=== PATIENT | female | born 1995 | race Two or more races ===

== ENCOUNTER 2018-01-01 01:14 | Emergency (ER) | payer OTHER ==
[~2018-01-01] VITALS: Ht 162.6 cm; Wt 68.0 kg
--- NOTE | 2018-01-01 01:45 | NUR ---
PT A/OX4 BREATHING EFFORTLESSLY ON ROOM AIR, PT STATES SHE HAS BEEN HVAING LEFT FLANK PAIN X 3 DAYS AND IT IS ONLY GETTING WORSE, PT STATES PAIN GOES FROM LEFT LOWER BACK TO LEFT FLANK TO LLQ ABD, PT ON MONITOR, URINE COLLECTED AND SENT TO LAB, IV PLACED, LABS DRAWN, PT FRIEND AT BEDSIDE, WARM BLANKET GIVEN TO PT, MD MADE AWARE WILL CONTINUE TO MONTIOR.
[2018-01-01 01:51] LABS: APPEARANCE,URINE CLEAR (CLEAR); BILIRUBIN,URINE NEGATIVE (NEGATIVE); BLOOD, URINE 3+ Ery/uL (NEGATIVE); COLOR,URINE YELLOW (YELLOW); KETONES,URINE NEGATIVE (NEGATIVE); LEUKOCYTE ESTERASE ,URINE NEGATIVE (NEGATIVE); NITRITE, URINE NEGATIVE (NEGATIVE); PROTEIN,URINE NEGATIVE (NEGATIVE); UGLUCOSE NEGATIVE (NEGATIVE); UROBILINOGEN,URINE 0.2 EU/dL (0.2)
[2018-01-01 01:55] LABS: BACTERIA,URINE Moderate /HPF (None Seen); SQUAMOUS EPITHELIAL CELL,UR Few /HPF (None Seen)
[2018-01-01] MEDS ORDERED: LORAZEPAM INJ 2 MG/ML VIAL IV ONE (02:00)
[2018-01-01] MEDS ORDERED: KETOROLAC TROMETHAMINE INJ 30 MG/ML VIAL IV ONE (02:00)
[2018-01-01] MEDS ORDERED: ONDANSETRON HCL/PF 4 MG/2 ML VIAL IVP ONE (02:00)
[2018-01-01] MEDS ORDERED: IV NS 0.9% 1,000 ML BAG IV ONE (02:00)
[2018-01-01 02:03] LABS: BASOPHILS % (AUTO) 0.6 % (0.0-2.0); EOSINOPHILS # (AUTO) 0.1 /CMM (0.0-0.7); EOSINOPHILS % (AUTO) 1.5 % (0.0-6.0); HEMATOCRIT 39 % (33-45); HEMOGLOBIN 13.5 g/dL (11.5-14.8); LYMPHOCYTES % (AUTO) 33.8 % (20.0-44.0); MEAN CORPUSCULAR HEMOGLOBIN 31 PG (26.0-33.0); MEAN CORPUSCULAR HGB CONC 34 g/dl (31.0-36.0); MEAN CORPUSCULAR VOLUME 89 fL (82-100); MONOCYTES # (AUTO) 0.4 /CMM (0.1-1.30); MONOCYTES % (AUTO) 7.3 % (2.0-12.0); NEUTROPHILS # (AUTO) 3.4 /CMM (1.8-8.9); NEUTROPHILS % (AUTO) 56.8 % (43.0-81.0); PLATELET COUNT (AUTO) 242 /CMM (150-450); RDW COEFFICIENT OF VARIATION 12.4 (11.5-15.0); RED BLOOD CELL COUNT(AUTO) 4.41 MIL/uL (4.0-5.2)
[2018-01-01] MEDS ORDERED: KETOROLAC TROMETHAMINE 15 MG/ML VIAL ONE (02:03)
[2018-01-01] MEDS ORDERED: ONDANSETRON HCL/PF 4 MG/2 ML VIAL ONE (02:03)
[2018-01-01] MEDS ORDERED: LORAZEPAM INJ 2 MG/ML VIAL ONE (02:04)
[2018-01-01 02:12] LABS: CALCIUM, SERUM 9.1 mg/dL (8.5-10.1); CREATININE 0.8 mg/dL (0.6-1.3); POTASSIUM 3.5 mmol/L (3.5-5.1)
[2018-01-01 02:18] LABS: ALBUMIN 4.1 g/dL (3.4-5.0); BILIRUBIN,DIRECT 0.1 mg/dL (0.0-0.2); BILIRUBIN,TOTAL 0.2 mg/dL (0.2-1.0); TOTAL PROTEIN, SERUM 7.8 g/dL (6.4-8.2)
--- NOTE | 2018-01-01 02:35 | NUR ---
PT TO CT
[2018-01-01] MEDS ORDERED: TAMSULOSIN 0.4 MG CAP.SR.24H ONE (03:26)
[2018-01-01] MEDS ORDERED: HYDROMORPHONE INJ 0.5 MG/0.5 ML SYRINGE ONE (03:26)
[2018-01-01] MEDS ORDERED: HYDROMORPHONE INJ 0.5 MG/0.5 ML SYRINGE IV ONE (03:30)
[2018-01-01] MEDS ORDERED: TAMSULOSIN 0.4 MG CAP.SR.24H PO ONE (03:30)
[2018-01-01 04:45] VITALS: BP 118/62
== END 2018-01-01 04:46 | disposition home or self-care (01) ==
LOC: ER 01:18
DX: N13.2 Hydronephrosis with renal and ureteral calculous obstruction (principal); F41.1 Generalized anxiety disorder; J45.909 Unspecified asthma, uncomplicated; F10.10 Alcohol abuse, uncomplicated; N39.0 Urinary tract infection, site not specified
CPT/HCPCS: 36415; 74176; 80048; 80076; 81001; 83690; 84703; 85025; 87086; 96361; 96374; 96375; 99285; A4606; J1885; J2060; J2405; Z7610; 81000-TC

== ENCOUNTER → 2018-02-17 | Emergency (ER) | payer OTHER ==
[~2018-02-17] VITALS: Ht 162.6 cm; Wt 70.3 kg
[~2018-02-17] MED LIST: IV NS 0.9% 1,000 ML BAG IV ONE; KETOROLAC TROMETHAMINE 15 MG/ML VIAL ONE; KETOROLAC TROMETHAMINE INJ 30 MG/ML VIAL IV ONE
[2018-02-17 14:26] LABS: APPEARANCE,URINE Cloudy (CLEAR); BILIRUBIN,URINE Negative (NEGATIVE); BLOOD, URINE Large Ery/uL (NEGATIVE); COLOR,URINE Yellow (YELLOW); KETONES,URINE Negative (NEGATIVE); LEUKOCYTE ESTERASE ,URINE Negative (NEGATIVE); NITRITE, URINE Negative (NEGATIVE); PROTEIN,URINE Trace mg/dl (NEGATIVE); UGLUCOSE Negative (NEGATIVE); UROBILINOGEN,URINE 0.2 EU/dL (0.2)
[2018-02-17 14:35] LABS: BACTERIA,URINE None seen /HPF (None Seen); RBC,URINE 51-80 /HPF (0-2); WBC,URINE 0-3 /HPF (0-3)
[2018-02-17 14:36] LABS: CALCIUM OXALATE CRYSTALS,UR Few /HPF (None Seen); SQUAMOUS EPITHELIAL CELL,UR Moderate /HPF (None Seen)
--- NOTE | 2018-02-17 14:40 | NUR ---
IV STARTED BY HEMAL TUTTLE. BLOOD SAMPLES OBTAINED AND GIVEN TO VIC VISITOR SERVICES TECHNICIAN.
[2018-02-17 14:45] LABS: BASOPHILS % (AUTO) 0.2 % (0.0-2.0); EOSINOPHILS # (AUTO) 0.1 /CMM (0.0-0.7); EOSINOPHILS % (AUTO) 2.7 % (0.0-6.0); HEMATOCRIT 40 % (33-45); HEMOGLOBIN 13.7 g/dL (11.5-14.8); LYMPHOCYTES # (AUTO) 1.2 /CMM (0.8-4.8); LYMPHOCYTES % (AUTO) 30.2 % (20.0-44.0); MEAN CORPUSCULAR HEMOGLOBIN 30 PG (26.0-33.0); MEAN CORPUSCULAR HGB CONC 34 g/dl (31.0-36.0); MEAN CORPUSCULAR VOLUME 89 fL (82-100); MONOCYTES # (AUTO) 0.3 /CMM (0.1-1.30); MONOCYTES % (AUTO) 6.1 % (2.0-12.0); NEUTROPHILS # (AUTO) 2.5 /CMM (1.8-8.9); NEUTROPHILS % (AUTO) 60.8 % (43.0-81.0); PLATELET COUNT (AUTO) 226 /CMM (150-450); RDW COEFFICIENT OF VARIATION 12.3 (11.5-15.0); RED BLOOD CELL COUNT(AUTO) 4.56 MIL/uL (4.0-5.2); WHITE BLOOD COUNT (AUTO) 4.1 K/uL (4.3-11.0)
[2018-02-17 14:56] LABS: CALCIUM, SERUM 8.3 mg/dL (8.5-10.1); CREATININE 0.8 mg/dL (0.6-1.3); POTASSIUM 3.8 mmol/L (3.5-5.1)
[2018-02-17 14:59] LABS: BILIRUBIN,DIRECT 0.1 mg/dL (0.0-0.2); BILIRUBIN,TOTAL 0.4 mg/dL (0.2-1.0); TOTAL PROTEIN, SERUM 7.9 g/dL (6.4-8.2)
--- NOTE | 2018-02-17 15:14 | NUR ---
PT C/O CONSTANT ABD PAIN RADIATING TO THE LEFT FLANK 06/10 WITH INTERMITTENT PAIN OF 09/10. DR. QUIROZ WAS NOTIFIED.
--- NOTE | 2018-02-17 15:19 | NUR ---
DR. QUIROZ IS SPEAKING TO THE PT.
[2018-02-17 15:37] VITALS: BP 106/63
--- NOTE | 2018-02-17 15:39 | NUR ---
PT DISCHARGED HOME WITH PRESCRIPTION WALKING WITH STEADY GAIT. WILL F/U WITH pmd
== END | disposition home or self-care (01) ==
LOC: ER 14:01
DX: R31.9 Hematuria, unspecified (principal); R10.32 Left lower quadrant pain; F10.10 Alcohol abuse, uncomplicated; F41.9 Anxiety disorder, unspecified; J45.909 Unspecified asthma, uncomplicated; Z88.2 Allergy status to sulfonamides; Z88.8 Allergy status to other drugs, medicaments and biological substances
CPT/HCPCS: 36415; 80048-TC; 80076-TC; 81000-TC; 83690-TC; 85025-TC; A4606; J1885; J7030; Z7610